=== PATIENT | female | born 1955 | race African-American/Black ===

== ENCOUNTER 2016-03-09 22:23 | Emergency (ER) | payer MEDICARE, OTHER ==
[~2016-03-09] VITALS: Ht 152.4 cm; Wt 72.6 kg
[2016-03-09] MEDS ORDERED: UNABLE MC (22:50)
--- NOTE | 2016-03-09 23:21 | PHYS DOC ---
Past Medical History Past Medical History: Diabetes-Type II, High Cholesterol, Hypertension Additional Past Medical Histor: P.A.D. w BILAT FEM POP, "GALLSTONES" Past Surgical History: Other Additional Past Surgical Histo: UNSURE IF SHE HAD GIGI Alcohol Use: None Drug Use: None Adult General Chief Complaint Chief Complaint: HYPERTENSION HPI HPI Patient is a 60 year old female who presents with elevated blood pressure. Patient reports she has been taking her blood pressure all day and has been high , up to 200/71 at its highest. Patient reports she took her blood pressure medication this morning; she is unsure what medication she takes or the dosage ( had been on multiple HTN meds in past which were decreased to single medication after episodes of hypotension). Patient said she could feel the elevated blood pressure in her eyes, although it did not affect her vision. She is feeling better now. No headache, no visual disturbance, no chest pain or shortness of breath. She does report that she has had some cold symptoms for the past week. Otherwise no acute complaints. Review of Systems Review of Systems Constitutional: Denies fever or chills HENT: Denies nasal congestion or sore throat Respiratory: Denies cough or shortness of breath Cardiovascular: Denies chest pain GI: Denies abdominal pain, nausea, vomiting, bloody stools or diarrhea : Denies dysuria or hematuria Musculoskeletal: Denies back pain or joint pain Integument: Denies rash or skin lesions Neurologic: Denies headache, focal weakness or sensory changes Current Medications Current Medications Current Medications Medications (Trade) Dose Ordered Sig/Cristiane Start Time Stop Time Status Last Admin Dose Admin Amlodipine Besylate (Norvasc) 5 mg 1X ONCE 03/09/16 23:30 03/09/16 23:31 DC 03/10/16 00:21 5 MG Allergies Allergies Allergies Coded Allergies Type Severity Reaction Last Updated Verified Sulfa (Sulfonamide Antibiotics) Allergy Unknown "I DONT KNOW, I THINK A RASH" 03/09/16 Yes Physical Exam Physical Exam Constitutional: Well developed, well nourished, no acute distress, non-toxic appearance HENT: Normocephalic, atraumatic, bilateral external ears normal Eyes: PERRL, EOMI, conjunctiva normal, no discharge Neck: Normal range of motion, no stridor Cardiovascular: Heart rate normal, regular rhythm, no murmur Lungs & Thorax: Bilateral breath sounds clear to auscultation Abdomen: Bowel sounds normal, soft, non-distended, no TTP Skin: Warm, dry, no erythema, no rash Extremities: No obvious deformity, no edema Neurologic: Alert and oriented X 3, GCS 15, CN II-XII grossly intact, strength intact and symmetrical throughout, sensation to light touch intact throughout, no dystaxia Current Patient Data Vital Signs Vital Signs Date Time Temp Pulse Resp B/P Pulse Ox O2 Delivery O2 Flow Rate FiO2 03/10/16 00:45 72 16 162/73 99 Room Air 03/09/16 22:25 98.0 98.0 EKG EKG [] Radiology/Procedures Radiology/Procedures [] Course & Med Decision Making Course & Med Decision Making Pertinent Labs and Imaging studies reviewed. (See chart for details) Patient is 60-year-old female who presents with elevated blood pressure. Asymptomatic at this time with no concerning physical exam findings, so will not pursue workup. Blood pressure variable in ED, but is elevated. Discussed the importance of following up with her PCP for possible adjustment of blood pressure medications. Patient given dose of amlodipine in emergency department to help bring down blood pressure. Patient discharged home with instructions for close outpatient follow-up and strict return precautions. Dragon Disclaimer Dragon Disclaimer This electronic medical record was generated, in whole or in part, using a voice recognition dictation system. Departure Departure Impression: Primary Impression: Hypertension Disposition: 01 HOME, SELF-CARE Condition: STABLE Referrals: ARIANNA MONGE MD (PCP) Patient Instructions: Hypertension Additional Instructions: Thank you for allowing us to provide care today in the Emergency Department. Continue to take your prescribed blood pressure medication as directed. Schedule a follow up appointment with your primary care doctor as soon as possible. Return promptly to the Emergency Department if you develop any new or concerning symptoms, such as chest discomfort. INDRA BUI MD Mar 09, 2016 23:21
[2016-03-09] MEDS ORDERED: AMLODIPINE BESYLATE 5 MG TABLET PO ONE (23:30)
[2016-03-10 00:45] VITALS: BP 162/73
== END 2016-03-10 01:00 | disposition home or self-care (01) ==
LOC: ER 22:23
DX: I10 Essential (primary) hypertension (principal); E11.9 Type 2 diabetes mellitus without complications; E78.00 Pure hypercholesterolemia, unspecified; I73.9 Peripheral vascular disease, unspecified; Z88.2 Allergy status to sulfonamides
CPT/HCPCS: 99283

== ENCOUNTER 2016-05-16 19:34 | Emergency (ER) | payer MEDICARE, OTHER ==
[~2016-05-16] VITALS: Ht 162.6 cm; Wt 86.2 kg
[~2016-05-16 19:34] MED LIST: UNABLE MC
--- NOTE | 2016-05-16 20:04 | PHYS DOC ---
Past Medical History Past Medical History: Diabetes-Type II, High Cholesterol, Hypertension Additional Past Medical Histor: P.Juan Carlos w BILAT FEM POP, "GALLSTONES" Past Surgical History: Other Additional Past Surgical Histo: UNSURE IF SHE HAD GIGI Alcohol Use: None Drug Use: None Adult General Chief Complaint Chief Complaint: NOSEBLEED HPI HPI Patient is a 60 year old female who presents with nosebleed. Patient reports after dinner and has started bleeding. She pinched her nose to stop it, and it has resolved by the time she gets here. EMS reports the patient's blood pressure was elevated en route to the hospital. Patient reports she does take blood pressure medication, she is unsure exactly what it is. She has a pill bottle with amlodipine/benazepril, however this is an old bottle and she thinks her prescription may change. She does not take any blood thinners, but she does take aspirin. No other acute complaints. Review of Systems Review of Systems Constitutional: Denies fever or chills HENT: Nose bleed, now resolved Respiratory: Denies cough or shortness of breath Cardiovascular: Denies chest pain GI: Denies abdominal pain, nausea, vomiting, or diarrhea Musculoskeletal: Denies back pain or joint pain Neurologic: Denies headache, focal weakness or sensory changes Current Medications Current Medications Current Medications Medications (Trade) Dose Ordered Sig/Cristiane Start Time Stop Time Status Last Admin Dose Admin Amlodipine Besylate (Norvasc) 10 mg 1X ONCE 05/16/16 20:30 05/16/16 20:31 DC 05/16/16 20:27 10 MG Allergies Allergies Allergies Coded Allergies Type Severity Reaction Last Updated Verified Sulfa (Sulfonamide Antibiotics) Allergy Unknown "I DONT KNOW, I THINK A RASH" 03/09/16 Yes Physical Exam Physical Exam Constitutional: Well developed, well nourished, no acute distress, non-toxic appearance HENT: Normocephalic, atraumatic, bilateral external ears normal; b/l nares clear without active bleeding Eyes: EOMI, conjunctiva normal, no discharge Neck: Normal range of motion, no stridor Cardiovascular: Heart rate normal, regular rhythm, no murmur Lungs & Thorax: Bilateral breath sounds clear to auscultation Abdomen: Bowel sounds normal, soft, non-distended, no TTP Extremities: No obvious deformity, no edema Neurologic: Alert and oriented X 3, no gross deficits noted Current Patient Data Vital Signs Vital Signs Date Time Temp Pulse Resp B/P Pulse Ox O2 Delivery O2 Flow Rate FiO2 05/16/16 21:21 86 158/74 98 Room Air 05/16/16 19:43 99.1 18 99.1 EKG EKG [] Radiology/Procedures Radiology/Procedures [] Course & Med Decision Making Course & Med Decision Making Pertinent Labs and Imaging studies reviewed. (See chart for details) Patient is 60-year-old female who presents with nosebleed that has resolved. Likely related to elevated blood pressure. Will give dose of amlodipine to help control blood pressure for tonight. Will observe in ED for a period of time to ensure no further bleeding. Blood pressure improved after amlodipine. No further bleeding noted. Patient discharged home with instructions follow-up with PCP to discuss blood pressure medications. Patient given strict return precautions. Dragon Disclaimer Dragon Disclaimer This electronic medical record was generated, in whole or in part, using a voice recognition dictation system. Departure Departure Impression: Primary Impression: Epistaxis Additional Impression: Hypertension Disposition: 01 HOME, SELF-CARE Condition: STABLE Referrals: ARIANNA MONGE MD (PCP) Patient Instructions: Hypertension, Nosebleed Additional Instructions: Thank you for allowing us to provide care today in the Emergency Department. Continue to take your blood pressure medication as directed. Schedule a follow up appointment with your primary care doctor. You may need your blood pressure medications adjusted. It may help to humidify your home or use saline nasal spray to help prevent further nosebleeds. Return promptly to the Emergency Department if you develop any new or concerning symptoms. Problem Qualifiers INDRA BUI MD May 16, 2016 20:04
[2016-05-16] MEDS ORDERED: AMLODIPINE BESYLATE 5 MG TABLET PO ONE (20:30)
[2016-05-16 21:21] VITALS: BP 158/74
== END 2016-05-16 21:37 | disposition home or self-care (01) ==
LOC: ER 19:34
DX: R04.0 Epistaxis (principal); I10 Essential (primary) hypertension; E11.9 Type 2 diabetes mellitus without complications; E78.00 Pure hypercholesterolemia, unspecified; Z79.82 Long term (current) use of aspirin; Z88.2 Allergy status to sulfonamides
CPT/HCPCS: 99283

== ENCOUNTER 2016-05-17 12:40 | Emergency (ER) | payer MEDICARE, OTHER ==
[~2016-05-17] VITALS: Ht 165.1 cm; Wt 86.2 kg
[2016-05-17 12:52] VITALS: BP 170/71
--- NOTE | 2016-05-17 12:58 | PHYS DOC ---
Past Medical History Past Medical History: Diabetes-Type II, High Cholesterol, Hypertension Additional Past Medical Histor: P.A.DMargarita w BILAT FEM POP, "GALLSTONES" Past Surgical History: Other Additional Past Surgical Histo: UNSURE IF SHE HAD GIGI Alcohol Use: None Drug Use: None Adult General Chief Complaint Chief Complaint: NOSEBLEED HPI HPI Patient is a 60 year old female who presents the emergency room today with complaint of right sided nasal bleeding that began this morning. Patient was also seen here last night for bloody nose on the right side. Chest was prescribed concerns for high blood pressure. Patient does have a history of high blood pressure. She has not missed any of her medications. Patient did not have any procedures performed last night her packing inserted. She denies any history of bleeding disorders. She is not on anticoagulants. She denies any problems with bleeding gums bruising easily or blood in her urine. Review of Systems Review of Systems Constitutional: Denies fever or chills [] Eyes: Denies change in visual acuity, redness, or eye pain [] HENT: Denies nasal congestion or sore throat [] Respiratory: Denies cough or shortness of breath [] Cardiovascular: No additional information not addressed in HPI [] GI: Denies abdominal pain, nausea, vomiting, bloody stools or diarrhea [] : Denies dysuria or hematuria [] Musculoskeletal: Denies back pain or joint pain [] Integument: Denies rash or skin lesions [] Neurologic: Denies headache, focal weakness or sensory changes [] Endocrine: Denies polyuria or polydipsia [] Current Medications Current Medications Current Medications Medications (Trade) Dose Ordered Sig/Cristiane Start Time Stop Time Status Last Admin Dose Admin Oxymetazoline HCl (Afrin) 2 spray 1X ONCE 05/17/16 13:00 05/17/16 13:01 DC 05/17/16 13:06 1 SPRAY Allergies Allergies Allergies Coded Allergies Type Severity Reaction Last Updated Verified Sulfa (Sulfonamide Antibiotics) Allergy Unknown "I DONT KNOW, I THINK A RASH" 03/09/16 Yes Physical Exam Physical Exam Constitutional: Well developed, well nourished, no acute distress, non-toxic appearance. [] HENT: Normocephalic, atraumatic, bilateral external ears normal, oropharynx moist, no oral exudates. No active bleeding at this time. Kiesselbach's plexus in the right near appears to be the source of the bleed. Bilateral nasal mucosa is hyperemic and dry/inflamed. There is no trismus. Patient does have some residual blood in her posterior oropharynx without any active bleeding. Eyes: PERRLA, EOMI, conjunctiva normal, no discharge. [] Neck: Normal range of motion, no tenderness, supple, no stridor. [] Cardiovascular:Heart rate regular rhythm, no murmur [] Lungs & Thorax: Bilateral breath sounds clear to auscultation [] Abdomen: Bowel sounds normal, soft, no tenderness, no masses, no pulsatile masses. [] Skin: Warm, dry, no erythema, no rash. [] Back: No tenderness, no CVA tenderness. [] Extremities: No tenderness, no cyanosis, no clubbing, ROM intact, no edema. [] Neurologic: Alert and oriented X 3, normal motor function, normal sensory function, no focal deficits noted. [] Psychologic: Affect normal, judgement normal, mood normal. [] Current Patient Data Vital Signs Vital Signs Date Time Temp Pulse Resp B/P Pulse Ox O2 Delivery O2 Flow Rate FiO2 05/17/16 12:52 98.2 97 16 100 Room Air 98.2 EKG EKG [] Radiology/Procedures Radiology/Procedures [] Course & Med Decision Making Course & Med Decision Making Patient Afrin nasal sprayed into both nostrils. She was observed for 15 minutes after receiving the nasal spray. She's had no active bleeding since that period of time. Dragon Disclaimer Dragon Disclaimer This electronic medical record was generated, in whole or in part, using a voice recognition dictation system. Departure Departure Impression: Primary Impression: Epistaxis Disposition: 01 HOME, SELF-CARE Condition: IMPROVED Referrals: ARIANNA MONGE MD (PCP) Patient Instructions: Nosebleed, [id number] Additional Instructions: 1. Review the discharge instructions provided for self-care and reasons to return the emergency department. 2. Use Afrin nasal spray twice a day for the next 3 days. 3. Use an vchy-iky-zrgvaxc antibiotic ointment, such as triple antibiotic, applied to the opening of your nostril and squeeze to spread the antibiotic ointment anterior nostril. Do this 3 times a day. This will help to keep your tonsils moisturizer to help prevent against infection. 4. If you began to experience new bleeding in your nose, be sure to pinch and older nostrils closed for 15 minutes with consistent pressure. 5. If you continue to have nose bleeds, called the ear nose and throat doctors number at [phone]. Be sure to tell the office staff that you live in [facility] so arrangements can be made for an appointment. DIEGO LOPEZ May 17, 2016 12:58
[2016-05-17] MEDS ORDERED: OXYMETAZOLINE 0.05% NASAL SPRAY 30ML BOTTLE. NS ONE (13:00)
== END 2016-05-17 13:44 | disposition home or self-care (01) ==
LOC: ER 12:40
DX: R04.0 Epistaxis (principal); I10 Essential (primary) hypertension; E78.00 Pure hypercholesterolemia, unspecified; E11.9 Type 2 diabetes mellitus without complications; Z88.2 Allergy status to sulfonamides
CPT/HCPCS: 99282

== ENCOUNTER → 2017-05-12 | Outpatient (CLI) | payer MEDICARE, OTHER | END | disposition home or self-care (01) | LOC: MAMMO 13:10 | DX: N63.12 Unspecified lump in the right breast, upper inner quadrant (principal) | CPT/HCPCS: 76641; 77066; G0279 ==

== ENCOUNTER 2019-06-11 20:14 | Emergency (ER) | payer MEDICARE ==
[~2019-06-11] VITALS: Ht 167.6 cm; Wt 66.0 kg
[~2019-06-11 20:14] MED LIST changes: +BENA40TA3 PO; +DICL100G18 TD; +DIPH25CA49 PO; +FLUD0.1T PO; +HYDR-2145 PO; +HYDR25TA PO; +IBUP800T19 PO; +ROSU20TA28 PO
[2019-06-11 20:31] VITALS: BP 153/64
[2019-06-11 20:37] LABS: BILIRUBIN,URINE LARGE (NEG); CLARITY,URINE TURBID; COLOR,URINE RED; NITRITE,URINE POSITIVE (NEG); PROTEIN,URINE >=300 mg/dL (NEG-TRACE)
[2019-06-11] MEDS ORDERED: LEVO500T59 PO (20:38)
[2019-06-11] MEDS ORDERED: PHEN-318 PO (20:38)
--- NOTE | 2019-06-11 20:38 | PHYS DOC ---
Past Medical History Past Medical History: Diabetes-Type II, High Cholesterol, Hypertension Additional Past Medical Histor: P.A.D. w BILAT FEM POP, "GALLSTONES" Past Surgical History: Other Additional Past Surgical Histo: UNSURE IF SHE HAD GIGI Smoking Status: Former Smoker Alcohol Use: None Drug Use: None Adult General Chief Complaint Chief Complaint: PAIN ON URINATION [facility] 63-year-old female with multiple medical problems presents with a previous diagnosis of urinary tract infection. She states she was diagnosed on Wednesday and started on Amoxil. She is still continued to have some pressure when she urinates and then also noticed some blood in her urine today. She denies any fever chills or sweats. She denies any flank pain. No nausea or vomiting.[] Review of Systems Review of Systems Constitutional: Denies fever or chills [] Eyes: Denies change in visual acuity, redness, or eye pain [] HENT: Denies nasal congestion or sore throat [] Respiratory: Denies cough or shortness of breath [] Cardiovascular: No additional information not addressed in HPI [] GI: Denies abdominal pain, nausea, vomiting, bloody stools or diarrhea [] : Per history of present illness[] Musculoskeletal: Denies back pain or joint pain [] Integument: Denies rash or skin lesions [] Neurologic: Denies headache, focal weakness or sensory changes [] Endocrine: Denies polyuria or polydipsia [] All other systems were reviewed and found to be within normal limits, except as documented in this note. Allergies Allergies Allergies Coded Allergies Type Severity Reaction Last Updated Verified Sulfa (Sulfonamide Antibiotics) Allergy Intermediate "I DONT KNOW, I THINK A RASH" 07/31/17 Yes Physical Exam Physical Exam Constitutional: Well developed, well nourished, no acute distress, non-toxic appearance. [] HENT: Normocephalic, atraumatic, bilateral external ears normal, oropharynx moist, no oral exudates, nose normal. [] Eyes: PERRLA, EOMI, conjunctiva normal, no discharge. [] Neck: Normal range of motion, no tenderness, supple, no stridor. [] Cardiovascular:Heart rate regular rhythm, no murmur [] Lungs & Thorax: Bilateral breath sounds clear to auscultation [] Abdomen: Bowel sounds normal, soft, no tenderness, no masses, no pulsatile masses. [] Skin: Warm, dry, no erythema, no rash. [] Back: No tenderness, no CVA tenderness. [] Extremities: No tenderness, no cyanosis, no clubbing, ROM intact, no edema. [] Neurologic: Alert and oriented X 3, normal motor function, normal sensory function, no focal deficits noted. [] Psychologic: Affect normal, judgement normal, mood normal. [] EKG EKG [] Radiology/Procedures Radiology/Procedures [] Course & Med Decision Making Course & Med Decision Making Pertinent Labs and Imaging studies reviewed. (See chart for details) [] Dragon Disclaimer Dragon Disclaimer This electronic medical record was generated, in whole or in part, using a voice recognition dictation system. Departure Departure Impression: Primary Impression: Urinary tract infection Disposition: HOME, SELF-CARE Condition: STABLE Referrals: ARIANNA MONGE MD (PCP) Patient Instructions: Hematuria, Adult, Urinary Tract Infection Additional Instructions: Return to the emergency department with any new or concerning symptoms Scripts Phenazopyridine Hcl (PYRIDIUM) 200 Mg Tablet 200 MG PO Q8HRS PRN for DYSURIA, #10 TAB Prov: DIANA BRYANT DO 06/11/19 Levofloxacin (LEVAQUIN) 500 Mg Tablet 1 TAB PO DAILY for urinary tract infection, #5 TAB Prov: DIANA BRYANT DO 06/11/19 Problem Qualifiers Primary Impression: Urinary tract infection Urinary tract infection type: acute cystitis Hematuria presence: with hematuria Qualified Codes: N30.01 - Acute cystitis with hematuria DIANA BRYANT DO Jun 11, 2019 20:38
[2019-06-11 20:41] LABS: BACTERIA,URINE MANY /HPF (0-FEW); RBC,URINE TNTC /HPF (0-2); WBC,URINE TNTC /HPF (0-4)
[2019-06-11 20:42] LABS: HYALINE CASTS, URINE OCCASIONAL /HPF; SQUAMOUS EPITHELIAL CELL,UR MOD /LPF
[2019-06-11] MEDS: PHENAZOPYRIDINE 200 MG TABLET. PO ONE (20:45)
== END 2019-06-11 20:53 | disposition home or self-care (01) ==
LOC: ER 20:14
DX: N30.01 Acute cystitis with hematuria (principal); I10 Essential (primary) hypertension; E11.9 Type 2 diabetes mellitus without complications; E78.00 Pure hypercholesterolemia, unspecified; Z87.891 Personal history of nicotine dependence; Z88.2 Allergy status to sulfonamides
CPT/HCPCS: 81001; 87086; 99284